=== PATIENT | male | born 1980 ===

== ENCOUNTER 2018-10-20 09:58 | Inpatient (IN) | payer OTHER ==
[2018-10-20] MEDS ORDERED: ONDANSETRON 4 MG ODT BU PRN (12:05)
[2018-10-20] MEDS ORDERED: HYDROMORPHONE 1 MG/ML SYRINGE IV ONE (12:10)
[2018-10-20] MEDS ORDERED: ENOXAPARIN 80 MG SOL SC SCH ×2 (12:45→12:49)
[2018-10-20] MEDS ORDERED: HYDROMORPHONE 1 MG/ML SYRINGE IV PRN (12:50)
[2018-10-20] MEDS: SODIUM CHLORIDE 0.9% FLUSH 10 ML SOL IV SCH ×2 (12:50→18:30)
[2018-10-20] MEDS: APAP/HYDROCODONE 1 EACH TABLET PO PRN ×3 (15:34→23:42)
[2018-10-20] MEDS: WARFARIN SODIUM 5 MG TAB PO SCH (18:24)
[2018-10-20] MEDS: ENOXAPARIN 80 MG SOL SC SCH (23:36)
[2018-10-20] MEDS ORDERED: APAP/HYDROCODONE 1 EACH TABLET ONE (23:41)
[2018-10-21] MEDS: SODIUM CHLORIDE 0.9% FLUSH 10 ML SOL IV SCH ×4 (03:35→19:58)
[2018-10-21 07:39] LABS: INR 1.2 (0.86-1.12)
[2018-10-21] MEDS: APAP/HYDROCODONE 1 EACH TABLET PO PRN ×4 (07:42→22:59)
[2018-10-21] MEDS: ENOXAPARIN 80 MG SOL SC SCH ×2 (11:34→23:00)
[2018-10-21] MEDS ORDERED: ACETAMINOPHEN 500 MG 500 MG TAB PO ONE (17:30)
[2018-10-21] MEDS: WARFARIN SODIUM 5 MG TAB PO SCH (17:38)
[2018-10-22] MEDS: APAP/HYDROCODONE 1 EACH TABLET PO PRN ×2 (05:25→10:50)
[2018-10-22] MEDS: SODIUM CHLORIDE 0.9% FLUSH 10 ML SOL IV SCH ×2 (05:26→13:20)
[2018-10-22 07:13] LABS: CALCIUM 8.4 mg/dl (8.5-10.1); CARBON DIOXIDE 25.9 mEq/L (21-32); CREATININE 0.98 mg/dl (0.80-1.30); POTASSIUM 3.5 mMol/L (3.5-5.1)
[2018-10-22 07:16] LABS: BASOPHILS % (AUTO) 1 % (0-3); EOSINOPHILS % (AUTO) 2 % (0-9); HEMATOCRIT 34 % (39-53); HEMOGLOBIN 9.8 gm/dl (13.5-17.7); MEAN CORPUSCULAR HEMOGLOBIN 19.2 pg (27.0-32.0); MEAN CORPUSCULAR HGB CONC 28.9 gm/dl (32.0-36.0); NEUTROPHILS % (AUTO) 70.5 % (37-80)
[2018-10-22 07:34] LABS: APPEARANCE,URINE Slightly Cloudy; BILIRUBIN,URINE 2+ (NEGATIVE); COLOR,URINE Amber; GLUCOSE, URINE (UA) TRACE (NEGATIVE); KETONES,URINE TRACE (NEGATIVE); LEUKOCYTE ESTERASE ,URINE NEGATIVE (NEGATIVE); NITRATE,URINE POSITIVE (NEGATIVE); OCCULT BLOOD,URINE NEGATIVE (NEG-TRACE)
[2018-10-22 07:35] LABS: INR 1.2 (0.86-1.12)
[2018-10-22 07:37] LABS: MEAN CORPUSCULAR VOLUME 66 fL (80-100)
[2018-10-22 07:47] LABS: BACTERIA 1+ (< 1+); CRYSTALS NEGATIVE (0-3 AVE/HPF); ICTOTEST,URINE NEGATIVE (NEGATIVE); RBC,URINE 0-2 (0-3AV/HPF)
[2018-10-22 07:59] LABS: ANISOCYTOSIS MOD AMT; OVALOCYTES PRESENT; POIKILOCYTOSIS SLIGHT AMT
[2018-10-22] MEDS ORDERED: WARFARIN SODIUM 5 MG TAB PO SCH (09:09)
[2018-10-22] MEDS ORDERED: ENOXAPARIN 80 MG SOL SC SCH (10:00)
[2018-10-22 18:08] VITALS: RESP 30
[2018-10-22] MEDS ORDERED: SODIUM CHLORIDE 0.9% 500 ML 500 ML IV ONE (18:27)
[2018-10-22 18:47] VITALS: TEMP 99.8; O2SAT 93
[2018-10-22 18:57] LABS: LACTIC ACID 1.3 mMol/L (0.0-2.0)
[2018-10-22 19:00] LABS: BASOPHILS % (AUTO) 1 % (0-3); EOSINOPHILS % (AUTO) 2 % (0-9); HEMATOCRIT 31 % (39-53); LYMPHOCYTES % (AUTO) 16.9 % (10-50); MEAN CORPUSCULAR HGB CONC 29.1 gm/dl (32.0-36.0); MONOCYTES % (AUTO) 6.3 % (0-12); NEUTROPHILS % (AUTO) 74.7 % (37-80)
[2018-10-22 19:01] LABS: MEAN CORPUSCULAR VOLUME 66 fL (80-100)
[2018-10-22 19:04] LABS: CALCIUM 8.2 mg/dl (8.5-10.1); CARBON DIOXIDE 28.5 mEq/L (21-32); CREATININE 0.88 mg/dl (0.80-1.30); POTASSIUM 3.7 mMol/L (3.5-5.1)
[2018-10-22 19:15] VITALS: BP 142/98; PULSE 123
[2018-10-22 19:48] LABS: ANISOCYTOSIS MOD AMT; OVALOCYTES PRESENT; POIKILOCYTOSIS SLIGHT
[2018-10-23] MEDS ORDERED: POLYETHYLENE GLYCOL 17 GM/1 TBS PDS PO SCH (09:00)
== END 2018-10-22 20:00 | disposition short-term general hospital (02) | DRG 176 ==
LOC: RAD 09:58 → ACUTE CARE 11:23
PROVIDERS: ADMIT Family Medicine; ATTEND Family Medicine
DX: I26.99 Other pulmonary embolism without acute cor pulmonale (principal); I82.4Z1 Acute embolism and thrombosis of unspecified deep veins of right distal lower extremity; R06.02 Shortness of breath; Z79.01 Long term (current) use of anticoagulants
CPT/HCPCS: 36415; 71275; 80048; 81001; 84484; 85025; 85610; 87040; 93005; 93012; 94760; J1650; Q9967; A9270-GY; J1170